=== PATIENT | male | born 1995 | race Two or more races ===

== ENCOUNTER 2018-10-20 20:55 | Emergency (ER) | payer SELFPAY ==
[2018-10-20 21:27] VITALS: BP 127/78; PULSE 88; RESP 20; TEMP 98.1; O2SAT 98
[2018-10-20] MEDS ORDERED: AMOXIL/CLAVULANATE 400/5 ML PDR PO ONE (21:29)
[2018-10-20] MEDS ORDERED: AUGMENTIN(FRIDGE) 400 MG/5 ML ONE (21:34)
== END 2018-10-20 21:55 | disposition home or self-care (01) | DRG 153 ==
LOC: ED 20:55
DX: J02.9 Acute pharyngitis, unspecified (principal)
CPT/HCPCS: 99282; A9270-GY